=== PATIENT | male | born 1945 | race Caucasian/White ===

== ENCOUNTER 2017-03-07 12:38 | Inpatient (IN) | payer MEDICARE ==
[~2017-03-07] VITALS: Ht 162.6 cm; Wt 73.5 kg
[~2017-03-07 12:38] MED LIST: CHOLESTEROL MED PO; CLIN150 PO; FOLI20CA PO; IRON18TA2 PO; LISI2.5T3 PO; SULF1TAB47 PO; VIT B1
[2017-03-07 12:40] VITALS: BP 158/97; PULSE 118; RESP 20; TEMP 98.7; O2SAT 96
--- NOTE | 2017-03-07 12:53 | PD ---
Physical Exam Date Seen by Provider: March 07, 2017 Time Seen by Provider: 12:51 Narrative 71 YOWM H/O FOR WITHDRAWAL. LAST DRINK 8-9PM. WANTING TX. FEELING TREMULOUS. VSS wating for bed asignment Data Data Last Documented VS Vital Signs Date Time Temp Pulse Resp B/P Pulse Ox O2 Delivery O2 Flow Rate FiO2 03/07/17 12:40 98.7 118 20 158/97 96 Room Air [facility] Medical Record Reviewed: No Supervised Visit with CHACORTA: Chris Ryan March 07, 2017 12:53
[2017-03-07 15:07] LABS: BASOPHIL # 0.1 TH/MM3 (0-0.2); BASOPHIL % 0.4 % (0.0-2.0); EOSINOPHIL % 0.1 % (0.0-4.0); HEMATOCRIT 42.6 % (39.0-51.0); LYMPH % 5.9 % (9.0-44.0); LYMPHOCYTE # 1.3 TH/MM3 (1.0-4.8); MEAN CELL VOLUME 82.4 FL (80.0-100.0); MEAN CORPUSCULAR HEMOGLOBIN 27.6 PG (27.0-34.0); MEAN CORPUSCULAR HGB CONC 33.5 % (32.0-36.0); NEUT % 89.6 % (16.0-70.0); PLATELET COUNT 300 TH/MM3 (150-450); RED BLOOD COUNT 5.17 MIL/MM3 (4.50-5.90); RED CELL DISTRIBUTION WIDTH 13.5 % (11.6-17.2); WHITE BLOOD COUNT 22.3 TH/MM3 (4.0-11.0)
--- NOTE | 2017-03-07 15:13 | PD ---
HPI Chief Complaint: Medical Clearance Time Seen by Provider: 15:10 Travel History International Travel<30 days: No Contact w/Intl Traveler<30days: No Traveled to known affect area: No History of Present Illness HPI 71-year-old elderly male presents to the emergency department for evaluation of alcohol detox. Patient states that over the last 3 days, he has had increased drinking. Patient reports intermittent heavy drinking. He states his last drink was around 8 or 9 PM last night. He states that she feels anxious and feels like he is going through detox. The patient reports tremors. Patient denies any drug use. Patient denies ever having an alcohol withdrawal seizure. Patient is requesting detox at this time. He reports history of high blood pressure, prediabetes, abdominal surgery. PFS Past Medical History High Cholesterol: Yes Diabetes: Yes (DIET CONTROL) Diminished Hearing: No Immunizations Current: Yes Past Surgical History Abdominal Surgery: Yes (DRAIN IN ASCENDING COLON) Appendectomy: Yes Social History Alcohol Use: No Tobacco Use: No Substance Use: No Allergies-Medications (Allergen,Severity, Reaction): Coded Allergies: No Known Allergies (Verified , 03/07/17) Reported Meds & Prescriptions Reported Meds & Active Scripts Active Reported Iron (Ferrous Fumarate) 18 Mg Tab 18 Mg PO BID Hydrochlorothiazide 12.5 Mg Cap 12.5 Mg PO BID Valium (Diazepam) 2 Mg Tab 2 Mg PO BID PRN Gemfibrozil 600 Mg Tab 600 Mg PO BIDAC Take 30 minutes prior to breakfast and dinner. Lisinopril 2.5 Mg Tab 2.5 Mg PO DAILY B-1 (Thiamine HCl) 100 Mg Tab 100 Mg PO DAILY Review of Systems Except as stated in HPI: all other systems reviewed are Neg Physical Exam Narrative GENERAL: Well-nourished, well-developed elderly male patient, ambulatory. Afebrile. Patient has tremors. SKIN: Focused skin assessment warm/dry. HEAD: Normocephalic. Atraumatic. EYES: No scleral icterus. No injection or drainage. NECK: Supple, trachea midline. No JVD or lymphadenopathy. CARDIOVASCULAR: Regular rate and rhythm without murmurs, gallops, or rubs. RESPIRATORY: Breath sounds equal bilaterally. No accessory muscle use. Lungs sounds are clear to auscultation. GASTROINTESTINAL: Abdomen soft and nondistended. Patient has tenderness over LLQ on palpation. MUSCULOSKELETAL: No cyanosis, or edema. BACK: Nontender without obvious deformity. No CVA tenderness. Data Data Last Documented VS Vital Signs Date Time Temp Pulse Resp B/P Pulse Ox O2 Delivery O2 Flow Rate FiO2 03/07/17 18:23 111 15 146/81 94 Room Air 03/07/17 16:36 99.1 Orders Complete Blood Count With Diff (03/07/17 14:15) Comprehensive Metabolic Panel (03/07/17 14:15) Electrocardiogram (03/07/17 14:15) Drug Screen, Random Urine (03/07/17 14:15) Alcohol (Ethanol) (03/07/17 14:15) Chlordiazepoxide (Librium) (03/07/17 15:00) Sodium Chlorid 0.9% 500 Ml Inj (Ns 500 M (03/07/17 15:15) Chest, Single Ap (03/07/17 ) Urinalysis - C+S If Indicated (03/07/17 15:43) Ct Abd/Pel W Iv Contrast(Rout) (03/07/17 ) Blood Culture (03/07/17 16:06) Lactic Acid Sepsis Protocol (03/07/17 16:06) Vancomycin Inj (Vancomycin Inj) (03/07/17 17:58) Piperacil-Tazo 4.5 Gm Premix (Zosyn 4.5 (03/07/17 17:58) Sodium Chlor 0.9% 1000 Ml Inj (Ns 1000 M (03/07/17 18:00) Alcohol Withdrawal Asmt-Ciwa ONCE (03/07/17 18:00) Flumazenil Inj (Romazicon Inj) (03/07/17 18:00) Lorazepam (Ativan) (03/07/17 18:00) Lorazepam Inj (Ativan Inj) (03/07/17 18:00) Lorazepam (Ativan) (03/07/17 18:00) Lorazepam Inj (Ativan Inj) (03/07/17 18:00) Lorazepam Inj (Ativan Inj) (03/07/17 18:00) Lorazepam Inj (Ativan Inj) (03/07/17 18:00) Iohexol 350 Inj (Omnipaque 350 Inj) (03/07/17 19:19) Admit To Inpatient (03/07/17 ) Code Status (03/07/17 19:49) Vital Signs (Adult) Q4H (03/07/17 19:49) Activity Oob With Assistance (03/07/17 19:49) Diet Npo (03/08/17 Breakfast) Sodium Chloride 0.9% Flush (Ns Flush) (03/07/17 20:00) Sodium Chloride 0.9% Flush (Ns Flush) (03/07/17 21:00) Acetaminophen (Tylenol) (03/07/17 20:00) Ondansetron Inj (Zofran Inj) (03/07/17 20:00) Temazepam (Restoril) (03/07/17 20:00) Basic Metabolic Panel (Bmp) (03/08/17 06:00) Complete Blood Count With Diff (03/08/17 06:00) Electrocardiogram (03/07/17 19:49) Pt Request For Service (03/07/17 19:49) Scd Bilateral/Knee High CHANEL.BID (03/07/17 19:49) Naloxone Inj (Narcan Inj) (03/07/17 20:00) Inpatient Certification (03/07/17 ) Admit Order (Ed Use Only) (03/07/17 19:53) Labs Laboratory Tests Test 03/07/17 03/07/17 03/07/17 11:43 14:25 16:30 Urine Color YELLOW Urine Turbidity CLEAR Urine pH 6.0 Urine Specific [place] 1.025 Urine Protein 30 mg/dL Urine Glucose (UA) NEG mg/dL Urine Ketones 40 mg/dL Urine Occult Blood NEG Urine Nitrite NEG Urine Bilirubin NEG Urine Urobilinogen LESS THAN 2.0 MG/DL Urine Leukocyte Esterase NEG Urine WBC 1 /hpf Urine Squamous Epithelial <1 /hpf Cells Urine Mucus FEW /lpf Microscopic Urinalysis Comment CULT NOT INDICATED Urine Opiates Screen NEG Urine Barbiturates Screen NEG Urine Amphetamines Screen NEG Urine Benzodiazepines Screen NEG Urine Cocaine Screen NEG Urine Cannabinoids Screen NEG White Blood Count 22.3 TH/MM3 Red Blood Count 5.17 MIL/MM3 Hemoglobin 14.3 GM/DL Hematocrit 42.6 % Mean Corpuscular Volume 82.4 FL Mean Corpuscular Hemoglobin 27.6 PG Mean Corpuscular Hemoglobin 33.5 % Concent Red Cell Distribution Width 13.5 % Platelet Count 300 TH/MM3 Mean Platelet Volume 9.2 FL Neutrophils (%) (Auto) 89.6 % Lymphocytes (%) (Auto) 5.9 % Monocytes (%) (Auto) 4.0 % Eosinophils (%) (Auto) 0.1 % Basophils (%) (Auto) 0.4 % Neutrophils # (Auto) 20.0 TH/MM3 Lymphocytes # (Auto) 1.3 TH/MM3 Monocytes # (Auto) 0.9 TH/MM3 Eosinophils # (Auto) 0.0 TH/MM3 Basophils # (Auto) 0.1 TH/MM3 CBC Comment AUTO DIFF Differential Comment AUTO DIFF CONFIRMED Sodium Level 142 MEQ/L Potassium Level 3.5 MEQ/L Chloride Level 100 MEQ/L Carbon Dioxide Level 27.6 MEQ/L Anion Gap 14 MEQ/L Blood Urea Nitrogen 20 MG/DL Creatinine 1.00 MG/DL Estimat Glomerular Filtration 74 ML/MIN Rate Random Glucose 121 MG/DL Calcium Level 9.6 MG/DL Total Bilirubin 0.5 MG/DL Aspartate Amino Transf 79 U/L (AST/SGOT) Alanine Aminotransferase 74 U/L (ALT/SGPT) Alkaline Phosphatase 110 U/L Total Protein 8.2 GM/DL Albumin 4.4 GM/DL Ethyl Alcohol Level LESS THAN 3 MG/DL Lactic Acid Level 2.4 mmol/L MDM Medical Decision Making Medical Screen Exam Complete: Yes Emergency Medical Condition: Yes Medical Record Reviewed: Yes Interpretation(s) chest x-ray - CONCLUSION: No acute disease. CT abdomen/pelvis - CONCLUSION: Sigmoid diverticulitis. Differential Diagnosis Alcohol withdrawal versus anxiety versus electrolyte abnormality Narrative Course 71-year-old male presents to the emergency department requesting detox from alcohol. He states his last drink was around 8 or 9 PM last night. CBC, CMP, EKG, urine drug screen, alcohol level, UA are ordered and pending. Patient is given normal saline 500 mL bolus, Librium 10 mg by mouth. EKG shows sinus tachycardia, heart rate 111, no acute ST changes. CBC shows elevated leukocytosis 22.3, neutrophil percentage 89.6. CMP shows no acute abnormality. UDS is negative. Alcohol level is less than 3. UA is negative for infection. Due to elevated WBC count, chest x-ray is ordered. Patient also has left lower quadrant tenderness on palpation. CT abdomen/pelvis with IV contrast is ordered and pending. Chest x-ray shows no acute disease. CT the abdomen/ pelvis shows sigmoid diverticulitis. Blood cultures 2 are drawn. Lactic acid is elevated at 2.4. Patient is given Zosyn and Vancomycin and 1 L NS IV bolus. Dr. Li admitted patient to Dr. Clemons. Sepsis Criteria SIRS Criteria (2 or more): Heart rate over 90, WBC > 50161, < 4000 or > 10% bands Sepsis Criteria (SIRS+source): Infect source susp/known Severe Sepsis (+one): Lactate >2 Diagnosis Primary Impression: Diverticulitis Qualified Code: K57.32 - Diverticulitis of large intestine without bleeding, unspecified complication status Additional Impressions: Sepsis Qualified Code: A41.9 - Sepsis, due to unspecified organism Alcohol withdrawal Qualified Code: F10.230 - Alcohol withdrawal, uncomplicated Admitting Information Admitting Physician Requests: Leslye Blanton March 07, 2017 15:13
[2017-03-07] MEDS ORDERED: SODIUM CHLORID 0.9% 500 ML INJ 500 ML IV ONE (15:15)
[2017-03-07 15:24] LABS: AMPHETAMINE, URINE NEG (NEG); BARBITURATES, URINE NEG (NEG); COCAINE, URINE NEG (NEG)
[2017-03-07 15:33] LABS: ALKALINE PHOSPHATASE 110 U/L (45-117); TOTAL BILIRUBIN ADULT 0.5 MG/DL (0.2-1.0)
[2017-03-07 15:36] LABS: HEMO FLAGS AUTO DIFF; SCAN/DIFF AUTO DIFF CONFIRMED
[2017-03-07 15:40] VITALS: BP 159/85; PULSE 116; RESP 18; O2SAT 98
[2017-03-07] MEDS ORDERED: GEMF600T PO (15:51)
[2017-03-07] MEDS ORDERED: LISI2.5T3 PO (15:51)
[2017-03-07] MEDS ORDERED: HYDR12.57 PO (15:51)
[2017-03-07] MEDS ORDERED: DIAZ2 PO (15:51)
[2017-03-07] MEDS ORDERED: IRON18TA2 PO (15:51)
[2017-03-07] MEDS ORDERED: [UNRECOGNIZED DRUG - OTHER] PO (15:51)
[2017-03-07 16:00] LABS: ALT (GPT) 74 U/L (12-78); ANION GAP 14 MEQ/L (5-15); AST (GOT) 79 U/L (15-37); BICARBONATE 27.6 MEQ/L (21.0-32.0); BLOOD UREA NITROGEN 20 MG/DL (7-18); CHLORIDE 100 MEQ/L (98-107); GLOMERULAR FILTRATION RATE 74 ML/MIN (>89); POTASSIUM 3.5 MEQ/L (3.5-5.1); SODIUM (NA) 142 MEQ/L (136-145)
--- NOTE | 2017-03-07 16:01 | RADRPT ---
EXAM DATE/TIME: 03/07/2017 15:46 [facility] COMPARISON: No previous studies available for comparison. INDICATIONS : Shortness of breath. MEDICAL HISTORY : Hypertension. Diabetes mellitus type II. Anxiety. SURGICAL HISTORY : None. ENCOUNTER: Initial ACUITY: 1 day PAIN SCORE: 0/10 LOCATION: Bilateral chest FINDINGS: A single view of the chest demonstrates the lungs to be symmetrically aerated without evidence of mas s, infiltrate or effusion. The cardiomediastinal contours are unremarkable. Osseous structures are intact. CONCLUSION: No acute disease. Rashaun Newton MD on March 07, 2017 at 15:58 Board Certified Radiologist. This report was verified electronically.
[2017-03-07 16:08] LABS: BLOOD, URINE NEG (NEG); COMMENT (UR) CULT NOT INDICATED; CULTURE IF INDICATED CULT NOT INDICATED; GLUCOSE,URINE NEG (NEG); KETONE, URINE 40 mg/dL (NEG); MUCUS URINE FEW /lpf (OCC); NITRITE,URINE NEG (NEG); SQUAMOUS EPITHELIAL CELL URINE <1 /hpf (0-5); URINE COLOR YELLOW (YELLW/STRAW)
[2017-03-07 16:36] VITALS: BP 162/84; PULSE 96; RESP 18; TEMP 99.1; O2SAT 97
[2017-03-07] MEDS ORDERED: VANCOMYCIN INJ 1,000 MG in SODIUM CHLOR 0.9% 250 ML INJ 250 ML IV STA (17:58)
[2017-03-07] MEDS ORDERED: PIPERACIL-TAZO 4.5 GM PREMIX 100 ML IV STA (17:58)
[2017-03-07] MEDS ORDERED: SODIUM CHLOR 0.9% 1000 ML INJ 1,000 ML IV ONE (18:00)
[2017-03-07] MEDS ORDERED: FLUMAZENIL 0.5 MG/5 ML VIAL IV PUSH PRN (18:00)
[2017-03-07] MEDS ORDERED: LORazepam 2 MG TAB PO PRN (18:00)
[2017-03-07] MEDS ORDERED: LORazepam 2 MG/ML VIAL IV PUSH PRN ×4 (18:00)
--- NOTE | 2017-03-07 18:05 | PD ---
Data Data Last Documented VS Vital Signs Date Time Temp Pulse Resp B/P Pulse Ox O2 Delivery O2 Flow Rate FiO2 03/07/17 16:36 99.1 96 18 162/84 97 Room Air Orders Complete Blood Count With Diff (03/07/17 14:15) Comprehensive Metabolic Panel (03/07/17 14:15) Electrocardiogram (03/07/17 14:15) Drug Screen, Random Urine (03/07/17 14:15) Alcohol (Ethanol) (03/07/17 14:15) Chlordiazepoxide (Librium) (03/07/17 15:00) Sodium Chlorid 0.9% 500 Ml Inj (Ns 500 M (03/07/17 15:15) Chest, Single Ap (03/07/17 ) Urinalysis - C+S If Indicated (03/07/17 15:43) Ct Abd/Pel W Iv Contrast(Rout) (03/07/17 ) Blood Culture (03/07/17 16:06) Lactic Acid Sepsis Protocol (03/07/17 16:06) Vancomycin Inj (Vancomycin Inj) (03/07/17 17:58) Piperacil-Tazo 4.5 Gm Premix (Zosyn 4.5 (03/07/17 17:58) Sodium Chlor 0.9% 1000 Ml Inj (Ns 1000 M (03/07/17 18:00) Alcohol Withdrawal Asmt-Ciwa ONCE (03/07/17 18:00) Flumazenil Inj (Romazicon Inj) (03/07/17 18:00) Lorazepam (Ativan) (03/07/17 18:00) Lorazepam Inj (Ativan Inj) (03/07/17 18:00) Lorazepam (Ativan) (03/07/17 18:00) Lorazepam Inj (Ativan Inj) (03/07/17 18:00) Lorazepam Inj (Ativan Inj) (03/07/17 18:00) Lorazepam Inj (Ativan Inj) (03/07/17 18:00) Labs Laboratory Tests Test 03/07/17 03/07/17 03/07/17 11:43 14:25 16:30 Urine Color YELLOW Urine Turbidity CLEAR Urine pH 6.0 Urine Specific [place] 1.025 Urine Protein 30 mg/dL Urine Glucose (UA) NEG mg/dL Urine Ketones 40 mg/dL Urine Occult Blood NEG Urine Nitrite NEG Urine Bilirubin NEG Urine Urobilinogen LESS THAN 2.0 MG/DL Urine Leukocyte Esterase NEG Urine WBC 1 /hpf Urine Squamous Epithelial <1 /hpf Cells Urine Mucus FEW /lpf Microscopic Urinalysis Comment CULT NOT INDICATED Urine Opiates Screen NEG Urine Barbiturates Screen NEG Urine Amphetamines Screen NEG Urine Benzodiazepines Screen NEG Urine Cocaine Screen NEG Urine Cannabinoids Screen NEG White Blood Count 22.3 TH/MM3 Red Blood Count 5.17 MIL/MM3 Hemoglobin 14.3 GM/DL Hematocrit 42.6 % Mean Corpuscular Volume 82.4 FL Mean Corpuscular Hemoglobin 27.6 PG Mean Corpuscular Hemoglobin 33.5 % Concent Red Cell Distribution Width 13.5 % Platelet Count 300 TH/MM3 Mean Platelet Volume 9.2 FL Neutrophils (%) (Auto) 89.6 % Lymphocytes (%) (Auto) 5.9 % Monocytes (%) (Auto) 4.0 % Eosinophils (%) (Auto) 0.1 % Basophils (%) (Auto) 0.4 % Neutrophils # (Auto) 20.0 TH/MM3 Lymphocytes # (Auto) 1.3 TH/MM3 Monocytes # (Auto) 0.9 TH/MM3 Eosinophils # (Auto) 0.0 TH/MM3 Basophils # (Auto) 0.1 TH/MM3 CBC Comment AUTO DIFF Differential Comment AUTO DIFF CONFIRMED Sodium Level 142 MEQ/L Potassium Level 3.5 MEQ/L Chloride Level 100 MEQ/L Carbon Dioxide Level 27.6 MEQ/L Anion Gap 14 MEQ/L Blood Urea Nitrogen 20 MG/DL Creatinine 1.00 MG/DL Estimat Glomerular Filtration 74 ML/MIN Rate Random Glucose 121 MG/DL Calcium Level 9.6 MG/DL Total Bilirubin 0.5 MG/DL Aspartate Amino Transf 79 U/L (AST/SGOT) Alanine Aminotransferase 74 U/L (ALT/SGPT) Alkaline Phosphatase 110 U/L Total Protein 8.2 GM/DL Albumin 4.4 GM/DL Ethyl Alcohol Level LESS THAN 3 MG/DL Lactic Acid Level 2.4 mmol/L MDM Supervised Visit with CHACORTA: Yes Narrative Course I, Dr. Li, have reviewed the advance practice practioner's documentation and am in agreement, met with the patient face to face, made the diagnosis, and the medical decision making was done by me. *My assessment and Findings: 71-year-old male here for evaluation for alcohol detox, increased drinking over the last 3-4 days, last drinking last night. Feeling anxious, tremulous and concern he may be going through withdrawal. Notably tachycardic in the 110s to 120s. White blood cell count however elevated in the 20s. Concern for concurrent sepsis. Patient feels body aches, but has attributed this to his withdrawal. Denies any fevers, chills, abdominal pain. Lactate was elevated at 2.4, therefore patient given IV fluids empirically covered with Zosyn, vancomycin. CT of the abdomen and pelvis will be obtained and patient will be admitted for rule out sepsis, versus withdrawal versus both. Placed on CIWA protocol in the ED. Critical Care Narrative Aggregate critical care time was 35 minutes. Time to perform other separately billable procedures was not included in the critical care time. My time did not include minutes spent treating any other patients simultaneously or on activities that did not directly contribute to the patient's treatment. The services I provided to this patient were to treat and/or prevent clinically significant deterioration that could result in: Cardiopulmonary decompensation, neurologic decompensation, , disability I provided critical care services requiring my management, as noted below: Chart data review, documentation time, medication orders and management, vital sign assessments/reviewing monitor data, ordering and reviewing lab tests, ordering and interpreting/reviewing x-rays and diagnostic studies, care of the patient and discussion of the patient with the admitting physicians. Sepsis Criteria SIRS Criteria (2 or more): Heart rate over 90, WBC > 82768, < 4000 or > 10% bands Sepsis Criteria (SIRS+source): Infect source susp/known Severe Sepsis (+one): Lactate >2 Criteria Outcome: Meets severe sepsis criteria Dianne Li MD March 07, 2017 18:05
[2017-03-07 18:23] VITALS: BP 146/81; PULSE 111; RESP 15; O2SAT 94
[2017-03-07] MEDS: LORazepam 1 MG TAB PO PRN ×2 (18:28→23:21)
[2017-03-07 18:41] LABS: LACTIC ACID GHOST NOT REPORTABLE
[2017-03-07] MEDS ORDERED: IOHEXOL 350 MG/ML 10 ML VIAL (for RAD DIAG) IV ONE (19:19)
--- NOTE | 2017-03-07 19:39 | RADRPT ---
EXAM DATE/TIME: 03/07/2017 19:16 [facility] COMPARISON: No previous studies available for comparison. INDICATIONS : Right lower quadrant abdomen pain. IV CONTRAST: 100 cc Omnipaque 350 (iohexol) IV ORAL CONTRAST: No oral contrast ingested. RADIATION DOSE: 13.13 CTDIvol (mGy) MEDICAL HISTORY : Diabetes mellitus type 2. SURGICAL HISTORY : Appendectomy. Drain in colon. ENCOUNTER: Initial ACUITY: 1 day PAIN SCALE: 8/10 LOCATION: Right lower quadrant abdomen TECHNIQUE: Volumetric scanning of the abdomen and pelvis was performed. Using automated exposure control and ad justment of the mA and/or kV according to patient size, radiation dose was kept as low as reasonably achievable to obtain optimal diagnostic quality images. FINDINGS: LOWER LUNGS: The visualized lower lungs are clear. LIVER: Diffuse mild decrease in hepatic attenuation suggesting steatosis. No focal mass or biliary ductal di latation. SPLEEN: Normal size without lesion. PANCREAS: Within normal limits. KIDNEYS: Normal in size and shape. There is no mass, stone or hydronephrosis. ADRENAL GLANDS: Within normal limits. VASCULAR: There is no aortic aneurysm. BOWEL/MESENTERY: There is prominent concentric wall thickening involving the sigmoid colon with mild inflammatory lawrence ges particularly in the proximal sigmoid region consistent with active inflammation. A 3.5 cm stool c ontaining outpouching directed posteriorly from the mid sigmoid region may be an unusually large dive rticulum or site of contained perforation. There is no evidence of pneumoperitoneum or free fluid to suggest free perforation. A tiny focal fluid collection in the anterior left lower quadrant appears t o be a small loculation. No drainable collection is identified. ABDOMINAL WALL: Fat-containing umbilical and upper abdominal right paramedian hernias without evidence of incarcerati on. RETROPERITONEUM: There is no lymphadenopathy. BLADDER: No wall thickening or mass. REPRODUCTIVE: Within normal limits. INGUINAL: There is no lymphadenopathy or hernia. MUSCULOSKELETAL: Within normal limits for patient age. CONCLUSION: Sigmoid diverticulitis. Noman Montana MD on March 07, 2017 at 19:31 Board Certified Radiologist. This report was verified electronically.
[2017-03-07] MEDS ORDERED: ACETAMINOPHEN 325 MG TAB PO PRN (20:00)
[2017-03-07] MEDS ORDERED: ONDANSETRON HCL 4 MG/2 ML VIAL IVP PRN (20:00)
[2017-03-07] MEDS ORDERED: NALOXONE HCL 0.4 MG/ML AMP IV PRN (20:00)
[2017-03-07] MEDS ORDERED: TEMAZEPAM 15 MG CAP PO PRN (20:00)
[2017-03-07] MEDS ORDERED: SODIUM CHLORIDE 0.9% FLUSH 10 ML FLUSH IV FLUSH PRN (20:00)
[2017-03-07 20:42] VITALS: BP 150/79; PULSE 101; RESP 20; TEMP 99.3; O2SAT 96
[2017-03-07 21:23] VITALS: PULSE 100
[2017-03-07] MEDS: SODIUM CHLORIDE 0.9% FLUSH 10 ML FLUSH IV FLUSH SCH (23:18)
[2017-03-07] MEDS: metroNIDAZOLE 500 MG INJ 100 ML IV SCH (23:18)
[2017-03-07] MEDS: 1/2 NS + KCL 20 MEQ INJ 1,000 ML IV SCH (23:21)
[2017-03-08] VITALS: BP 118/72; PULSE 90; RESP 18; TEMP 98.5; O2SAT 95
[2017-03-08 04:00] VITALS: BP 146/77; PULSE 87; RESP 18; TEMP 98.3; O2SAT 96
[2017-03-08] MEDS: metroNIDAZOLE 500 MG INJ 100 ML IV SCH ×3 (06:00→21:56)
[2017-03-08] MEDS: LORazepam 1 MG TAB PO PRN ×2 (07:11→16:04)
[2017-03-08 08:00] VITALS: BP 142/80; PULSE 87; PULSE 91; RESP 18; TEMP 98.3; O2SAT 96
[2017-03-08] MEDS: LEVOFLOXACIN 500 MG PREMIX INJ 100 ML IV SCH (08:03)
[2017-03-08] MEDS: SODIUM CHLORIDE 0.9% FLUSH 10 ML FLUSH IV FLUSH SCH ×2 (08:04→21:49)
[2017-03-08] MEDS: 1/2 NS + KCL 20 MEQ INJ 1,000 ML IV SCH ×2 (08:06→18:09)
[2017-03-08 09:31] LABS: AUTOMATED NEUTROPHIL # 5.4 TH/MM3 (1.8-7.7); BASOPHIL % 0.4 % (0.0-2.0); EOSINOPHIL # 0.2 TH/MM3 (0-0.4); EOSINOPHIL % 2.4 % (0.0-4.0); HEMATOCRIT 35.9 % (39.0-51.0); HEMO FLAGS DIFF FINAL; LYMPH % 13.5 % (9.0-44.0); LYMPHOCYTE # 0.9 TH/MM3 (1.0-4.8); MEAN CELL VOLUME 81.9 FL (80.0-100.0); MEAN CORPUSCULAR HEMOGLOBIN 27.4 PG (27.0-34.0); MEAN CORPUSCULAR HGB CONC 33.4 % (32.0-36.0); NEUT % 76.7 % (16.0-70.0); PLATELET COUNT 200 TH/MM3 (150-450); RED BLOOD COUNT 4.39 MIL/MM3 (4.50-5.90); RED CELL DISTRIBUTION WIDTH 13.1 % (11.6-17.2); WHITE BLOOD COUNT 7.1 TH/MM3 (4.0-11.0)
[2017-03-08 10:01] LABS: POTASSIUM 3.4 MEQ/L (3.5-5.1)
[2017-03-08 12:00] VITALS: BP 161/83; PULSE 80; RESP 18; TEMP 97.9; O2SAT 97
--- NOTE | 2017-03-08 13:27 | EKG ---
Date Performed: 03/07/2017 Time Performed: 14:37:18 PTAGE: 71 years EKG: SINUS TACHYCARDIA POSSIBLE LATERAL MYOCARDIAL INFARCTION INFERIOR MYOCARDIAL INFARCTION ABN ORMAL ECG NO PREVIOUS TRACING DOCTOR: Laurita Oswald Interpretating Date/Time 03/08/2017 13:25:21
--- NOTE | 2017-03-08 13:39 | EKG ---
Date Performed: 03/07/2017 Time Performed: 21:26:31 PTAGE: 71 years EKG: SINUS TACHYCARDIA INFERIOR MYOCARDIAL INFARCTION , OF INDETERMINATE AGE Since previous trac ing, no significant change noted ABNORMAL ECG PREVIOUS TRACING : 03/07/2017 14.37 DOCTOR: Laurita Oswald Interpretating Date/Time 03/08/2017 13:37:45
[2017-03-08 16:00] VITALS: BP 166/84; PULSE 81; RESP 18; TEMP 98.1; O2SAT 97
--- NOTE | 2017-03-08 17:39 | HHI.HP ---
HPI Service [facility] Hospitalists Primary Care Physician Que Talbot Admission Diagnosis alcohol withdrawal, acute diverticulitis, severe sepsis Chief Complaint: LLQ abd pain requesting etoh detox Travel History International Travel<30 Days: No Contact w/Intl Traveler <30 Da: No Traveled to Known Affected Are: No History of Present Illness Pt is a 71 y/o M with h/o etoh abuse, hyperlipidemia, DM2, HTN, CKD. Patient presented to the ER requesting alcohol detox. Pt states that he has been recently binge drinking. Pt also c/o LLQ abdominal pain. Pt was found to have diverticulitis on the CT abdomen. Pt's WBC was elevated to 22.3K. Pt's lactic acid was slightly elevated at 2.4. Pt was given vancomycin and zosyn. Pt admitted to [place] for further evaluation and treatment. Review of Systems Constitutional: DENIES: Diaphoretic episodes, Fatigue, Fever, Weight gain, Weight loss, Chills, Dizziness, Change in appetite, Night Sweats Endocrine: DENIES: Heat/cold intolerance, Polydipsia, Polyuria, Polyphagia Eyes: DENIES: Blurred vision, Diplopia, Eye inflammation, Eye pain, Vision loss , Photosensitivity, Double Vision Ears, nose, mouth, throat: DENIES: Tinnitus, Hearing loss, Vertigo, Nasal discharge, Oral lesions, Throat pain, Hoarseness, Ear Pain, Running Nose, Epistaxis, Sinus Pain, Toothache, Odynophagia Respiratory: DENIES: Apneas, Cough, Snoring, Wheezing, Hemoptysis, Sputum production, Shortness of breath Cardiovascular: DENIES: Chest pain, Palpitations, Syncope, Dyspnea on Exertion , PND, Lower Extremity Edema, Orthopnea, Claudication Gastrointestinal: COMPLAINS OF: Abdominal pain, DENIES: Black stools, Bloody stools, BRB per rectum, Constipation, Diarrhea, GERD, Nausea, Reflux, Vomiting, Difficulty Swallowing, Anorexia Genitourinary: DENIES: Urinary frequency, Urinary incontinence, Urgency, Hematuria, Dysuria, Nocturia Musculoskeletal: DENIES: Joint pain, Muscle aches, Stiffness, Joint Swelling, Back pain, Neck pain Integumentary: DENIES: Abnormal pigmentation, Nail changes, Pruritus, Rash Hematologic/lymphatic: DENIES: Bruising, Lymphadenopathy Immunologic/allergic: DENIES: Eczema, Urticaria Neurologic: DENIES: Abnormal gait, Headache, Localized weakness, Paresthesias, Seizures, Speech Problems, Tremor, Poor Balance Psychiatric: DENIES: Anxiety, Confusion, Mood changes, Depression, Hallucinations, Agitation, Suicidal Ideation, Homicidal Ideation, Delusions, History of Bipolar, History of Schizophrenia Past Family Social History Past Medical History 1) hypertension 2) diabetes - Ocular complications - Diabetic kidney disease 3) chronic kidney disease 4) bipolar disorder 5) alcoholism 6) depression 7) gout 8) hyperlipidemia Past Surgical History 1) cataract surgery Allergies: Coded Allergies: No Known Allergies (Verified , 03/07/17) Physical Exam Vital Signs Vital Signs Date Time Temp Pulse Resp B/P Pulse Ox O2 Delivery O2 Flow Rate FiO2 03/08/17 16:00 98.1 81 18 166/84 97 03/08/17 12:00 97.9 80 18 161/83 97 03/08/17 08:00 Room Air 03/08/17 08:00 87 03/08/17 08:00 98.3 91 18 142/80 96 03/08/17 04:00 98.3 87 18 146/77 96 03/08/17 00:00 98.5 90 18 118/72 95 03/07/17 23:50 Room Air 03/07/17 21:23 100 03/07/17 20:42 99.3 101 20 150/79 96 03/07/17 18:23 111 15 146/81 94 Room Air Physical Exam GENERAL: This is a well-nourished, well-developed patient, in no apparent distress. SKIN: No rashes, ecchymoses or lesions. Cool and dry. HEAD: Atraumatic. Normocephalic. No temporal or scalp tenderness. EYES: Pupils equal round and reactive. Extraocular motions intact. No scleral icterus. No injection or drainage. ENT: Nose without bleeding, purulent drainage or septal hematoma. Throat without erythema, tonsillar hypertrophy or exudate. Uvula midline. Airway patent. NECK: Trachea midline. No JVD or lymphadenopathy. Supple, nontender, no meningeal signs. CARDIOVASCULAR: Regular rate and rhythm without murmurs, gallops, or rubs. RESPIRATORY: Clear to auscultation. Breath sounds equal bilaterally. No wheezes , rales, or rhonchi. GASTROINTESTINAL: Abdomen soft, non-tender, nondistended. No hepato-splenomegaly , or palpable masses. No guarding. MUSCULOSKELETAL: Extremities without clubbing, cyanosis, or edema. No joint tenderness, effusion, or edema noted. No calf tenderness. Negative Homans sign bilaterally. NEUROLOGICAL: Awake and alert. Cranial nerves II through XII intact. Motor and sensory grossly within normal limits. Five out of 5 muscle strength in all muscle groups. Normal speech. Laboratory Laboratory Tests Test 03/07/17 03/08/17 19:30 07:42 Lactic Acid Level 3.3 White Blood Count 7.1 Red Blood Count 4.39 Hemoglobin 12.0 Hematocrit 35.9 Mean Corpuscular Volume 81.9 Mean Corpuscular Hemoglobin 27.4 Mean Corpuscular Hemoglobin 33.4 Concent Red Cell Distribution Width 13.1 Platelet Count 200 Mean Platelet Volume 8.8 Neutrophils (%) (Auto) 76.7 Lymphocytes (%) (Auto) 13.5 Monocytes (%) (Auto) 7.0 Eosinophils (%) (Auto) 2.4 Basophils (%) (Auto) 0.4 Neutrophils # (Auto) 5.4 Lymphocytes # (Auto) 0.9 Monocytes # (Auto) 0.5 Eosinophils # (Auto) 0.2 Basophils # (Auto) 0.0 CBC Comment DIFF FINAL Differential Comment Sodium Level 139 Potassium Level 3.4 Chloride Level 103 Carbon Dioxide Level 27.0 Anion Gap 9 Blood Urea Nitrogen 13 Creatinine 0.81 Estimat Glomerular Filtration 94 Rate Random Glucose 118 Calcium Level 8.6 Date/Time Procedure Status Source Growth 03/07/17 16:30 Aerobic Blood Culture - Preliminary Resulted Blood Peripheral NO GROWTH IN 1 DAY 03/07/17 16:30 Anaerobic Blood Culture - Preliminary Resulted Blood Peripheral NO GROWTH IN 1 DAY Result Diagram: 03/08/17 0742 03/08/17 0742 Imaging Last Impressions Chest X-Ray 03/07/17 0000 Signed Impressions: Service Date/Time: Tuesday, March 07, 2017 15:46 - CONCLUSION: No acute disease. Rashaun Newton MD Abdomen/Pelvis CT 03/07/17 0000 Signed Impressions: Service Date/Time: Tuesday, March 07, 2017 19:16 - CONCLUSION: Sigmoid diverticulitis. Noman Montana MD Septic Shock Reassessment Heart: Regular rate and rhythm Lungs: Clear Skin: Warm Peripheral Pulses: Bounding Right Radial Bounding Left Radial Bounding Right Popliteal Bounding Left Popliteal Bounding Right Dorsalis Pedis Bounding Left Dorsalis Pedis Bounding Right Posterior Tibial Bounding Left Posterior Tibial Capillary Refill: Brisk Assessment and Plan Problem List: (1) Alcohol withdrawal Status: Acute Plan: - ativan by [facility] protocol - mvi, thiamin, folate - refer to [facility] mental health upon discharge (2) Diverticulitis Status: Acute Plan: - WBC normalized from admission - I do NOT believe that pt is septic - flagyl, levaquin (3) HTN (hypertension) Status: Chronic Plan: - resume outpt norvasc and lisinopril - observe (4) DM2 (diabetes mellitus, type 2) Status: Chronic Plan: - SSI Problem Qualifiers (1) Alcohol withdrawal: Qualified Code: F10.230 - Alcohol withdrawal, uncomplicated (2) Diverticulitis: Qualified Code: K57.32 - Diverticulitis of large intestine without bleeding, unspecified complication status (3) HTN (hypertension): Qualified Code: I10 - Essential hypertension (4) DM2 (diabetes mellitus, type 2): Ger Clemons DO March 08, 2017 17:39
[2017-03-08] MEDS: amLODIPine BESYLATE 5 MG TAB PO SCH (18:04)
[2017-03-08] MEDS: LISINOPRIL 20 MG TAB PO SCH (18:04)
[2017-03-08] MEDS: GEMFIBROZIL 600 MG TAB PO SCH (18:04)
[2017-03-08 20:00] VITALS: BP 141/80; PULSE 82; PULSE 92; RESP 20; TEMP 98.3; O2SAT 96
[2017-03-08] MEDS: INSULIN ASPART SUPPLEMENTAL SCALE SQ SCH (21:55)
[2017-03-09] VITALS: BP 122/59; PULSE 79; RESP 20; TEMP 98; O2SAT 97
[2017-03-09] MEDS: LORazepam 1 MG TAB PO PRN ×2 (00:44→12:36)
[2017-03-09 04:00] VITALS: BP 157/79; PULSE 73; RESP 18; TEMP 98.1; O2SAT 96
[2017-03-09] MEDS: metroNIDAZOLE 500 MG INJ 100 ML IV SCH ×2 (05:15→12:40)
[2017-03-09] MEDS: INSULIN ASPART SUPPLEMENTAL SCALE SQ SCH ×2 (06:13→11:00)
[2017-03-09] MEDS: GEMFIBROZIL 600 MG TAB PO SCH (06:19)
[2017-03-09] MEDS: 1/2 NS + KCL 20 MEQ INJ 1,000 ML IV SCH (06:20)
[2017-03-09] MEDS: LEVOFLOXACIN 500 MG PREMIX INJ 100 ML IV SCH (07:57)
[2017-03-09] MEDS: SODIUM CHLORIDE 0.9% FLUSH 10 ML FLUSH IV FLUSH SCH (07:58)
[2017-03-09] MEDS: LISINOPRIL 20 MG TAB PO SCH (07:58)
[2017-03-09] MEDS: amLODIPine BESYLATE 5 MG TAB PO SCH (07:58)
[2017-03-09 08:00] VITALS: BP 165/79; PULSE 77; RESP 12; TEMP 98.1; O2SAT 97
[2017-03-09 08:10] VITALS: PULSE 77
[2017-03-09 08:42] LABS: AUTOMATED NEUTROPHIL # 3.5 TH/MM3 (1.8-7.7); BASOPHIL % 0.3 % (0.0-2.0); EOSINOPHIL # 0.2 TH/MM3 (0-0.4); EOSINOPHIL % 3.4 % (0.0-4.0); HEMATOCRIT 35.6 % (39.0-51.0); HEMO FLAGS DIFF FINAL; LYMPH % 16.9 % (9.0-44.0); LYMPHOCYTE # 0.8 TH/MM3 (1.0-4.8); MEAN CELL VOLUME 81.2 FL (80.0-100.0); MEAN CORPUSCULAR HGB CONC 34.5 % (32.0-36.0); MONO % 5.9 % (0.0-8.0); NEUT % 73.5 % (16.0-70.0); PLATELET COUNT 170 TH/MM3 (150-450); RED BLOOD COUNT 4.38 MIL/MM3 (4.50-5.90); RED CELL DISTRIBUTION WIDTH 13.8 % (11.6-17.2); WHITE BLOOD COUNT 4.7 TH/MM3 (4.0-11.0)
[2017-03-09] MEDS ORDERED: ALLOPURINOL 100 MG TAB PO SCH (09:00)
[2017-03-09 09:06] LABS: BICARBONATE 27.5 MEQ/L (21.0-32.0); POTASSIUM 3.7 MEQ/L (3.5-5.1)
[2017-03-09 11:00] LABS: HEMOGLOBIN A1a 1.2 %; HEMOGLOBIN A1b 1.7 %; HEMOGLOBIN LA1C 1.6 %; HEMOGLOBIN P3 3.8 %
[2017-03-09 12:00] VITALS: BP 139/81; PULSE 94; RESP 16; TEMP 98.2; O2SAT 96
[2017-03-09] MEDS ORDERED: ALLO100 PO (14:36)
[2017-03-09] MEDS ORDERED: LISI-515 PO (14:36)
[2017-03-09] MEDS ORDERED: LEVA500T PO (14:36)
[2017-03-09] MEDS ORDERED: AMLO5 PO (14:36)
[2017-03-09] MEDS ORDERED: METR-1 PO (14:36)
[2017-03-09] MEDS ORDERED: IRON18TA2 PO (14:36)
--- NOTE | 2017-03-09 14:39 | HHI.PR ---
Subjective Remarks No new complaints. Abdominal pain resolved. Pt is tolerating PO intake. Objective Vitals Vital Signs Date Time Temp Pulse Resp B/P Pulse Ox O2 Delivery O2 Flow Rate FiO2 03/09/17 12:00 98.2 94 16 139/81 96 03/09/17 08:10 77 03/09/17 08:10 Room Air 03/09/17 08:00 98.1 77 12 165/79 97 03/09/17 04:00 98.1 73 18 157/79 96 03/09/17 00:00 98.0 79 20 122/59 97 03/08/17 20:00 82 03/08/17 20:00 98.3 92 20 141/80 96 03/08/17 20:00 Room Air 03/08/17 16:00 98.1 81 18 166/84 97 03/08/17 03/08/17 03/09/17 15:00 23:00 07:00 Intake Total 928 ml 672 ml Balance 928 ml 672 ml Intake Oral 240 ml IV Total 688 ml 672 ml # Voids 4 1 2 # Bowel Movements 1 0 0 Result Diagram: 03/09/17 0811 03/09/17 0811 Imaging Last Impressions Chest X-Ray 03/07/17 0000 Signed Impressions: Service Date/Time: Tuesday, March 07, 2017 15:46 - CONCLUSION: No acute disease. Rashaun Newton MD Abdomen/Pelvis CT 03/07/17 0000 Signed Impressions: Service Date/Time: Tuesday, March 07, 2017 19:16 - CONCLUSION: Sigmoid diverticulitis. Noman Montana MD Objective Remarks GENERAL: This is a well-nourished, well-developed patient, in no apparent distress. CARDIOVASCULAR: Regular rate and rhythm without murmurs, gallops, or rubs. RESPIRATORY: Clear to auscultation. Breath sounds equal bilaterally. No wheezes , rales, or rhonchi. GASTROINTESTINAL: Abdomen soft, non-tender, nondistended. Normal active bowel sounds MUSCULOSKELETAL: Extremities without clubbing, cyanosis, or edema. NEURO: Alert & Oriented x4 to person, place, time, situation. Moves all ext x4 A/P Problem List: (1) Alcohol withdrawal Status: Acute Plan: - ativan by [facility] protocol - mvi, thiamin, folate - refer to [facility] mental health upon discharge (2) Diverticulitis Status: Acute Plan: - WBC normalized from admission - I do NOT believe that pt is septic - flagyl, levaquin x 5 additional days upon discharge (3) HTN (hypertension) Status: Chronic Plan: - resume outpt norvasc and lisinopril - observe (4) DM2 (diabetes mellitus, type 2) Status: Chronic Plan: - SSI Problem Qualifiers (1) Alcohol withdrawal: Qualified Code: F10.230 - Alcohol withdrawal, uncomplicated (2) Diverticulitis: Qualified Code: K57.32 - Diverticulitis of large intestine without bleeding, unspecified complication status (3) HTN (hypertension): Qualified Code: I10 - Essential hypertension (4) DM2 (diabetes mellitus, type 2): Ger Clemons DO March 09, 2017 14:39
[2017-03-09] MEDS ORDERED: FOLI1TAB4 PO (14:43)
[2017-03-09] MEDS ORDERED: THIA100T PO (14:43)
[2017-03-09] MEDS ORDERED: MULT1TAB84 PO (14:43)
== END 2017-03-09 18:16 | disposition home or self-care (01) | DRG 872 ==
LOC: NEPD 12:38 → NEDA 19:54 → N04B 20:42
PROVIDERS: ADMIT Hospitalist; ATTEND Hospitalist
DX: R65.20 Severe sepsis without septic shock (principal); K57.32 Diverticulitis of large intestine without perforation or abscess without bleeding; E11.9 Type 2 diabetes mellitus without complications; F10.230 Alcohol dependence with withdrawal, uncomplicated; I10 Essential (primary) hypertension; A41.9 Sepsis, unspecified organism; E78.5 Hyperlipidemia, unspecified; F32.9 Major depressive disorder, single episode, unspecified; M10.9 Gout, unspecified; Z79.84 Long term (current) use of oral hypoglycemic drugs
CPT/HCPCS: 71010; 74177; 80048; 80053; 80307; 81001; 82948; 83036; 83605; 83735; 85025; 87040; 93005; 96361; 96374; J1815; J1956; J7030; J7040; Q9967